=== PATIENT | male | born 1945 | race Caucasian/White ===

== ENCOUNTER → 2017-05-26 | Outpatient (CLI) | payer OTHER | END | disposition home or self-care (01) | LOC: CFH 09:31 | PROVIDERS: ATTEND Nurse Practitioner | DX: R91.8 Other nonspecific abnormal finding of lung field (principal) | CPT/HCPCS: 71250 ==

== ENCOUNTER → 2017-07-07 | Outpatient (CLI) | payer OTHER | END | disposition home or self-care (01) | LOC: CFH 09:02 | PROVIDERS: ATTEND Family Medicine | DX: Z13.6 Encounter for screening for cardiovascular disorders (principal); I77.810 Thoracic aortic ectasia; J84.10 Pulmonary fibrosis, unspecified | CPT/HCPCS: 75571 ==

== ENCOUNTER → 2018-01-16 | Outpatient (CLI) | payer OTHER | END | disposition home or self-care (01) | LOC: CFH 07:11 | PROVIDERS: ATTEND Family Medicine | DX: M79.604 Pain in right leg (principal); R60.9 Edema, unspecified ==

== ENCOUNTER → 2018-07-03 | Outpatient (CLI) | payer OTHER | END | disposition home or self-care (01) | LOC: CFH 12:24 | PROVIDERS: ATTEND Internal Medicine Critical Care Medicine | DX: R91.8 Other nonspecific abnormal finding of lung field (principal) | CPT/HCPCS: 71250 ==

== ENCOUNTER → 2019-07-02 | Outpatient (CLI) | payer MEDICARE | END | disposition home or self-care (01) | LOC: PETCFH 12:15 | PROVIDERS: ATTEND Internal Medicine Critical Care Medicine | DX: R91.8 Other nonspecific abnormal finding of lung field (principal); C61 Malignant neoplasm of prostate; I25.10 Atherosclerotic heart disease of native coronary artery without angina pectoris; I70.0 Atherosclerosis of aorta | CPT/HCPCS: 78815; A9552 ==

== ENCOUNTER → 2019-07-15 | Outpatient (CLI) | payer MEDICARE | END | disposition home or self-care (01) | LOC: CVU 07:35 | PROVIDERS: ATTEND Family Medicine | DX: I35.8 Other nonrheumatic aortic valve disorders (principal); I71.2 Thoracic aortic aneurysm, without rupture; Z85.51 Personal history of malignant neoplasm of bladder; Z85.46 Personal history of malignant neoplasm of prostate | CPT/HCPCS: 0399T; 93306 ==

== ENCOUNTER → 2019-08-22 | Outpatient (CLI) | payer MEDICARE | END | disposition home or self-care (01) | LOC: CVU 06:37 | PROVIDERS: ATTEND Internal Medicine Cardiovascular Disease | DX: I65.23 Occlusion and stenosis of bilateral carotid arteries (principal); I70.0 Atherosclerosis of aorta; R94.31 Abnormal electrocardiogram [ECG] [EKG] | CPT/HCPCS: 93880 ==

== ENCOUNTER → 2019-08-22 | Outpatient (CLI) | payer MEDICARE ==
[~2019-08-22] MED LIST: OMNIPAQUE 350 MG/ML, 100ML BOTTLE ONE
== END | disposition home or self-care (01) ==
LOC: CFH 13:26
PROVIDERS: ATTEND Internal Medicine Cardiovascular Disease
DX: I70.0 Atherosclerosis of aorta (principal); R94.31 Abnormal electrocardiogram [ECG] [EKG]; R59.9 Enlarged lymph nodes, unspecified
CPT/HCPCS: 71275; 82565; Q9967

== ENCOUNTER → 2019-10-07 | Outpatient (CLI) | payer MEDICARE ==
[~2019-10-07] MED LIST changes: -OMNIPAQUE 350 MG/ML, 100ML BOTTLE ONE; +REGADENOSON 0.4 MG/5 ML SYRINGE ONE
== END | disposition home or self-care (01) ==
LOC: CFH 07:27
PROVIDERS: ATTEND Internal Medicine Cardiovascular Disease
DX: I70.0 Atherosclerosis of aorta (principal); R94.31 Abnormal electrocardiogram [ECG] [EKG]
CPT/HCPCS: 78452; 93017; A9502; J2785

== ENCOUNTER → 2020-07-01 | Outpatient (CLI) | payer MEDICARE | END | disposition home or self-care (01) | LOC: CFH 09:55 | PROVIDERS: ATTEND Registered Nurse | DX: R91.8 Other nonspecific abnormal finding of lung field (principal); J84.10 Pulmonary fibrosis, unspecified | CPT/HCPCS: 71250 ==

== ENCOUNTER 2020-07-10 09:42 | Day surgery (SDC) | payer MEDICARE ==
[2020-07-07 15:02] LABS: ALANINE AMINOTRANSFERASE 22 U/L (12-78); ALBUMIN 4.2 g/dL (3.4-5.0); ANION GAP 5 mmol/L (5-15); CALCIUM 9.4 mg/dL (8.5-10.1); CHLORIDE 107 mmol/L (98-107); CREATININE 1.22 mg/dL (0.7-1.3)
[2020-07-07 15:05] LABS: ALKALINE PHOSPHATASE 80 U/L (45-117); BILIRUBIN,TOTAL 0.6 mg/dL (0.2-1.0); TOTAL PROTEIN 7.7 g/dL (6.4-8.2)
[~2020-07-10] VITALS: Ht 190.5 cm; Wt 101.0 kg
[~2020-07-10 09:42] MED LIST changes: +LOSA25TA25 PO; -REGADENOSON 0.4 MG/5 ML SYRINGE ONE
[2020-07-10 09:58] VITALS: BP 148/79
[2020-07-10] MEDS ORDERED: LACTATED RINGERS 1,000 ML IV SCH (10:00)
[2020-07-10] MEDS ORDERED: CHLORHEXIDINE 15 ML UDC MM ONE (10:00)
[2020-07-10] MEDS ORDERED: LIDOCAINE-MPF 1%, 2ML INFIL ONE (10:00)
[2020-07-10] MEDS ORDERED: CHLORHEXIDINE 15 ML UDC ONE (10:07)
[2020-07-10] MEDS ORDERED: FENTANYL PF 100 MCG/2ML ONE (11:40)
[2020-07-10] MEDS ORDERED: PHENYLEPHRINE 10 MG/ML ONE (11:50)
[2020-07-10] MEDS ORDERED: FENTANYL PF 100 MCG/2ML IV PRN (12:30)
[2020-07-10] MEDS ORDERED: hydrALAzine 20 MG/ML, 1ML IV PRN (12:30)
[2020-07-10] MEDS ORDERED: ACETAMINOPHEN 325 MG TABLET PO PRN (12:30)
[2020-07-10] MEDS ORDERED: ALBUTEROL SULFATE 2.5 MG/3 ML NPPB PRN (12:30)
[2020-07-10] MEDS ORDERED: OXYcodone 5 MG/5 ML ORAL.SOL UDC PO PRN (12:30)
[2020-07-10] MEDS ORDERED: LABETALOL 5MG/ML, 20ML IV PRN (12:30)
[2020-07-10] MEDS ORDERED: PROMETHAZINE 25 MG/ML, 1ML IVPush PRN (12:30)
[2020-07-10] MEDS ORDERED: LORazepam 2 MG/ML, 1ML IVPush PRN (12:30)
[2020-07-10] MEDS ORDERED: MEPERIDINE/PF 25MG/0.5ML IVPush PRN (12:30)
[2020-07-10] MEDS ORDERED: GLYCOPYRROLATE 0.2MG/1ML, 5ML ONE (13:24)
[2020-07-10] MEDS ORDERED: PROPOFOL 10 MG/ML, 20ML ONE (13:24)
[2020-07-10] MEDS ORDERED: DEXAMETHASONE 4 MG/ML, 1ML ONE (13:24)
[2020-07-10] MEDS ORDERED: SUCCINYLCHOLINE 20 MG/ML, 10ML ONE (13:24)
[2020-07-10] MEDS ORDERED: NEOSTIGMINE 1 MG/ML, 10ML ONE (13:24)
[2020-07-10] MEDS ORDERED: ROCURONIUM 10MG/ML,5ML ONE (13:24)
[2020-07-10] MEDS ORDERED: ONDANSETRON 2MG/ML, 2ML ONE (13:24)
== END 2020-07-10 15:30 | disposition home or self-care (01) ==
LOC: OUT 09:42
PROVIDERS: ATTEND Internal Medicine
DX: R91.1 Solitary pulmonary nodule (principal); I10 Essential (primary) hypertension; Z79.899 Other long term (current) drug therapy; Z85.46 Personal history of malignant neoplasm of prostate; Z20.828 Contact with and (suspected) exposure to other viral communicable diseases; Z87.891 Personal history of nicotine dependence; Z88.9 Allergy status to unspecified drugs, medicaments and biological substances; Z72.89 Other problems related to lifestyle; Z82.49 Family history of ischemic heart disease and other diseases of the circulatory system
CPT/HCPCS: 31623; 31624; 31627; 31628; 36415; 71045; 71250; 80053; 87635; 88108; 88112; 88172; 88173; 88177; 88305; 93005; J0330; J1100; J2370; J2405; J2704; J2710; J3010; J7120; 31625; 76000

== ENCOUNTER → 2020-11-25 | Outpatient (CLI) | payer MEDICARE | END | disposition home or self-care (01) | LOC: CFH 10:47 | PROVIDERS: ATTEND Internal Medicine | DX: R91.8 Other nonspecific abnormal finding of lung field (principal); J43.9 Emphysema, unspecified; J84.10 Pulmonary fibrosis, unspecified; J98.4 Other disorders of lung; I25.10 Atherosclerotic heart disease of native coronary artery without angina pectoris | CPT/HCPCS: 71250 ==

== ENCOUNTER 2020-12-15 13:41 | Outpatient (CLI) | payer MEDICARE | END 2020-12-15 23:59 | disposition home or self-care (01) | LOC: PETCFH 13:41 | PROVIDERS: ATTEND Internal Medicine | DX: C61 Malignant neoplasm of prostate (principal); R91.8 Other nonspecific abnormal finding of lung field; J84.10 Pulmonary fibrosis, unspecified | CPT/HCPCS: 78815; A9552 ==

== ENCOUNTER → 2020-12-21 | Outpatient (CLI) | payer MEDICARE | END | disposition home or self-care (01) | LOC: CFH 08:33 | PROVIDERS: ATTEND Internal Medicine Cardiovascular Disease | DX: I35.8 Other nonrheumatic aortic valve disorders (principal); I71.2 Thoracic aortic aneurysm, without rupture; Z85.51 Personal history of malignant neoplasm of bladder | CPT/HCPCS: 93306 ==

== ENCOUNTER → 2021-04-14 | Outpatient (CLI) | payer MEDICARE | END | disposition home or self-care (01) | LOC: CFH 13:18 | PROVIDERS: ATTEND Internal Medicine | DX: I71.2 Thoracic aortic aneurysm, without rupture (principal); R91.8 Other nonspecific abnormal finding of lung field | CPT/HCPCS: 71250 ==